=== PATIENT | female | born 1990 | race Caucasian/White ===

== ENCOUNTER 2018-11-14 22:56 | Emergency (ER) | payer OTHER ==
[~2018-11-14] VITALS: Ht 167.6 cm; Wt 86.2 kg
[2018-11-14 23:03] VITALS: BP 110/60
--- NOTE | 2018-11-14 23:05 | NUR ---
TO LOBBY A/W BED, AMBULATORY, VSS
--- NOTE | 2018-11-14 23:10 | NUR ---
PT PRESENTS TO ED WITH SEVERE MORELAND, LIGHT SENSIVITIY. NO N/V, NO ALOC, NO DIZZINESS, NO BLURRED VISION. VSS. HX MIGRAINS. NEEDS RX REFILL. VSS. 9/10 MORELAND PAIN. AMBULATORY WITH STEADY GAIT. POSITIONED IN BED FOR COMFORT. ER MD AWARE. CONTINUE TO MONITOR.
--- NOTE | 2018-11-14 23:40 | NUR ---
AMBUALTED TO BED 1.
[2018-11-15 00:12] VITALS: BP 110/60
--- NOTE | 2018-11-15 00:12 | NUR ---
DISCHARGE PAPERS GIVEN TO PT. 11/23 PAIN BUT TOLLERABLE. VSS. AMBULATORY WITH STEADY GAIT. RX OF BUTORPHANOL GIVEN. SIDE EFFECTS EXPLAINED. INSTRUCTED TO F/U WITH PCP OR WHEN TO RETURN TO ED. PT VERBALIZED UNDERSTANDING OF DC INSTRUCTIONS. ALL QUESTIONS ANSWERED.
== END 2018-11-15 00:12 | disposition home or self-care (01) ==
LOC: MED 22:56
DX: G43.909 Migraine, unspecified, not intractable, without status migrainosus (principal)
CPT/HCPCS: 99281

== ENCOUNTER 2019-04-11 21:31 | Emergency (ER) | payer OTHER ==
[~2019-04-11] VITALS: Ht 160 cm; Wt 63.5 kg
[2019-04-11 21:35] VITALS: BP 111/60
[2019-04-11 22:30] VITALS: BP 115/64
== END 2019-04-11 22:30 | disposition home or self-care (01) ==
LOC: MED 21:31
DX: G43.909 Migraine, unspecified, not intractable, without status migrainosus (principal); R11.0 Nausea; F17.210 Nicotine dependence, cigarettes, uncomplicated; Z76.0 Encounter for issue of repeat prescription
CPT/HCPCS: 99283

== ENCOUNTER 2019-05-02 16:49 | Emergency (ER) | payer OTHER ==
[~2019-05-02] VITALS: Ht 162.6 cm; Wt 64.6 kg
[2019-05-02 17:10] VITALS: BP 117/67
== END 2019-05-02 18:30 | disposition left against medical advice (07) ==
LOC: MED 16:49
DX: G43.909 Migraine, unspecified, not intractable, without status migrainosus (principal); Z53.21 Procedure and treatment not carried out due to patient leaving prior to being seen by health care provider

== ENCOUNTER 2021-04-07 00:35 | Emergency (ER) | payer OTHER ==
[~2021-04-07] VITALS: Ht 160 cm; Wt 71.2 kg
[2021-04-07 00:52] VITALS: BP 113/74
== END 2021-04-07 01:14 | disposition left against medical advice (07) ==
LOC: MED 00:35
DX: R51.9 Headache, unspecified (principal); Z53.21 Procedure and treatment not carried out due to patient leaving prior to being seen by health care provider